=== PATIENT | male | born 1960 | race Caucasian/White ===

== ENCOUNTER 2020-02-18 17:00 | Emergency (ER) | payer MEDICAID ==
[~2020-02-18] VITALS: Ht 162.6 cm; Wt 72.7 kg
--- NOTE | 2020-02-18 17:27 | PHYS DOC ---
Past Medical History Past Medical History: No Pertinent History (SUJEY MERCADO MD) Past Surgical History: No Surgical History (SUJEY MERCADO MD) Smoking Status: Current Every Day Smoker Alcohol Use: Occasionally (SUJEY MERCADO MD) General Adult EDM: Chief Complaint: ALTERED MENTAL STATUS HPI: HPI: Patient is a 59 year old male who arrives via EMS after being found outside his home unresponsive by . Patient confused upon arrival of EMS. Patient found to have urinary incontinence. Patient denies any medical problems and says he drinks up to a sixpack of beer a day. Patient's history physical and review of systems is limited by altered mental status. Patient states he did have a couple beers today but does not know the exact month and year. (SUJEY MERCADO MD) Review of Systems: Review of Systems: Constitutional: Denies fever or chills. [] Eyes: Denies change in visual acuity. [] HENT: Denies nasal congestion or sore throat. [] Respiratory: Denies cough or shortness of breath. [] Cardiovascular: Denies chest pain or edema. [] GI: Denies abdominal pain, nausea, vomiting, bloody stools or diarrhea. [] : Denies dysuria. [] Musculoskeletal: Denies back pain or joint pain. [] Integument: Denies rash. [] Neurologic: Denies headache, focal weakness or sensory changes. [] Endocrine: Denies polyuria or polydipsia. [] Lymphatic: Denies swollen glands. [] Psychiatric: Denies depression or anxiety. [] Patient denies the whole review of systems but it is limited due to his altered mental status (SUJEY MERCADO MD) Heart Score: Risk Factors: Risk Factors: DM, Current or recent (<one month) smoker, HTN, HLP, family history of CAD, obesity. Risk Scores: Score 0 - 3: 2.5% MACE over next 6 weeks - Discharge Home Score 4 - 6: 20.3% MACE over next 6 weeks - Admit for Clinical Observation Score 7 - 10: 72.7% MACE over next 6 weeks - Early Invasive Strategies (SUJEY MERCADO MD) Allergies: Allergies: Allergies Coded Allergies Type Severity Reaction Last Updated Verified No Known Drug Allergies 02/18/20 No (SUJEY MERCADO MD) Physical Exam: PE: Constitutional: Well developed, well nourished, no acute distress, non-toxic appearance. [] Incontinent to urine HENT: Normocephalic, atraumatic, bilateral external ears normal, oropharynx moist, no oral exudates, no tongue lesions nose normal. [] Eyes: PERRLA, EOMI, conjunctiva normal, no discharge. [] Neck: Normal range of motion, no tenderness, supple, no stridor. [] Cardiovascular:Heart rate regular rhythm, peripheral pulses intact, cap refill brisk Lungs & Thorax: Bilateral breath sounds clear no respiratory distress Abdomen: soft, no tenderness, no masses, no pulsatile masses. [] Skin: Warm, dry, no erythema, no rash. [] Back: No tenderness, no CVA tenderness. [] Extremities: No tenderness, no cyanosis, no clubbing, ROM intact, no edema. [] Neurologic: Alert and oriented X 1 normal motor function, normal sensory function, no focal deficits noted. [] Psychologic: Affect normal, judgement normal, mood normal. [] (SUJEY MERCADO MD) Current Patient Data: Vital Signs: Vital Signs Date Time Temp Pulse Resp B/P (MAP) Pulse Ox O2 Delivery O2 Flow Rate FiO2 02/18/20 17:08 98.1 111 16 119/74 (89) 94 Room Air 98.1 (SUJEY MERCADO MD) EKG: EKG: [] (SUJEY MERCADO MD) Radiology/Procedures: Radiology/Procedures: [] (SUJEY MERCADO MD) Course & Med Decision Making: Course & Med Decision Making Pertinent Labs and Imaging studies reviewed. (See chart for details) [] 59-year-old male presents with a possible seizure and confusion. Patient has a large work-up that has been ordered by [facility] results are pending and care will be signed over to Dr. Guevara with follow-up on labs and imaging and EKG and disposition all pending. (SUJEY MERCADO MD) Course & Med Decision Making Assumed care at checkout. At checkout work-up was pending. Work-up is normal at this time. I have talked with the patient and he is back to his baseline. He states that he does typically drink every day but did not drink today. Is likely this was an alcohol withdrawal seizure. Patient does not want to quit drinking and would like to go home. He was offered admission but declined. Patient's test results and vitals while in the ED were fully reviewed and discussed with the patient. Patient is stable and at this time does not need admission to the hospital. We have discussed strict return precautions and the importance of following up with their Primary Care Physician. Patient stated understanding and was given an opportunity to ask any questions. Patient is in agreement with plan. (ESTEFANI GUEVARA MD) Dragon Disclaimer: Dragon Disclaimer: This electronic medical record was generated, in whole or in part, using a voice recognition dictation system. (SUJEY MERCADO MD) Departure Departure Impression: Primary Impression: Altered mental status Additional Impressions: Seizure Alcohol abuse Disposition: 01 HOME, SELF-CARE Condition: IMPROVED Patient Instructions: Alcohol Withdrawal, Oocc-ab-Nnxs, Seizure, Adult Justicifation of Admission Dx: Justifications for Admission: Justification of Admission Dx: N/A (SUJEY MERCADO MD) Justification of Admission Dx: N/A (ESTEFANI GUEVARA MD) SUJEY MERCADO MD Feb 18, 2020 17:27 ESTEFANI GUEVARA MD Feb 18, 2020 20:36
--- NOTE | 2020-02-18 17:52 | RAD ---
EXAM: Chest, single view. HISTORY: Seizure. COMPARISON: None. FINDINGS: A frontal view of the chest is obtained. There is no infiltrate, pleural effusion or pneumothorax. The heart is normal in size. There are healed rib fractures. There is a healed right clavicle fracture. IMPRESSION: No acute pulmonary finding. Electronically signed by: Ciarra Marie MD (02/18/2020 5:49 PM) [facility]
--- NOTE | 2020-02-18 18:19 | RAD ---
CT HEAD INDICATION: Seizure COMPARISON: None Available. Exposure: One or more of the following individualized dose reduction techniques were utilized for this examination: 1. Automated exposure control 2. Adjustment of the mA and/or kV according to patient size 3. Use of iterative reconstruction technique TECHNIQUE: 5 mm contiguous axial images were obtained from the skull base to the vertex in both bone and soft tissue algorithm. FINDINGS: No abnormal attenuation within the brain parenchyma. No evidence of acute intracranial hemorrhage. No extra-axial fluid collections. No mass effect or midline shift. Ventricular size is appropriate. Basal cisterns are patent. No fractures identified.Mahmood-white differentiation is preserved.Globes and orbits are within normal limits. Paranasal sinuses and mastoid air cells are clear. IMPRESSION: No acute intracranial findings. Electronically signed by: Ben Johnson MD (02/18/2020 6:16 PM) [id number]
[2020-02-18 18:44] LABS: BASO % 0 % (0-3); EOS % 0 % (0-3); HEMATOCRIT 43.7 % (39.0-53.0); HEMOGLOBIN 14.6 g/dL (13.0-17.5); LYMPH # 0.7 x10^3/uL (1.0-4.8); LYMPH % 8 % (24-48); MEAN CORPUSCULAR HEMOGLOBIN 29 pg (25-35); MEAN CORPUSCULAR HGB CONC 33 g/dL (31-37); MEAN CORPUSCULAR VOLUME 86 fL (79-100); MONO # 0.8 x10^3/uL (0.0-1.1); MONO % 8 % (0-9); NEUT # 8.1 x10^3/uL (1.8-7.7); NEUT % 84 % (31-73); PLATELET COUNT 136 x10^3/uL (140-400); RED BLOOD COUNT 5.09 x10^6/uL (4.30-5.70); RED CELL DISTRIBUTION WIDTH 15.2 % (11.5-14.5); WHITE BLOOD COUNT 9.7 x10^3/uL (4.0-11.0)
[2020-02-18 19:13] LABS: PROTHROMBIN TIME PATIENT 13.9 SEC (11.7-14.0)
[2020-02-18 19:24] LABS: CREATININE 0.9 mg/dL (0.7-1.3); GFR 86.1; POTASSIUM 3.8 mmol/L (3.5-5.1)
[2020-02-18 19:29] LABS: ALBUMIN 3.8 g/dL (3.4-5.0); ALBUMIN/GLOBULIN RATIO 0.9 (1.0-1.7); MAGNESIUM 2.2 mg/dL (1.8-2.4); TOTAL BILIRUBIN 0.5 mg/dL (0.2-1.0); TOTAL PROTEIN 8.1 g/dL (6.4-8.2)
[2020-02-18] MEDS ORDERED: IV NORMAL SALINE 1000ML BAG 1,000 ML IV ONE (20:15)
[2020-02-18 20:31] LABS: BARBITURATES NEG (NEG); BENZODIAZEPINES NEG (NEG); CANNABINOIDS NEG (NEG); COCAINE NEG (NEG); METHADONE NEG (NEG); OPIATES NEG (NEG); PHENCYCLIDINE NEG (NEG)
[2020-02-18 20:32] LABS: AMPHETAMINE/METHAMPHETAMINE NEG (NEG)
[2020-02-18 21:00] VITALS: BP 149/78
--- NOTE | 2020-02-19 08:02 | EKG ---
[facility] [address] [place] [id number] Test Date: 2020-02-18 Test Time: 19:10:54 Pat Name: ROLAND AGUILAR Department: Room: Gender: M Energy Specialist: : 1960 Requested By: SUJEY MERCADO Order Number: [id number] Reading MD: Measurements Intervals [place] Rate: 82 P: 51 MO: 164 QRS: -39 QRSD: 96 T: 44 QT: 384 QTc: 452 Interpretive Statements SINUS RHYTHM LEFT ATRIAL ABNORMALITY ABNORMAL LEFT AXIS DEVIATION LEFT ANTERIOR FASCICULAR BLOCK ABNORMAL ECG RI6.02 No previous ECG available for comparison
== END 2020-02-18 21:30 | disposition home or self-care (01) ==
LOC: ER 17:00
DX: R41.82 Altered mental status, unspecified (principal); R56.9 Unspecified convulsions; F10.10 Alcohol abuse, uncomplicated; Y90.0 Blood alcohol level of less than 20 mg/100 ml; R32 Unspecified urinary incontinence; F17.200 Nicotine dependence, unspecified, uncomplicated
CPT/HCPCS: 36415; 70450; 71045; 80053; 80307; 82550; 83690; 83735; 84484; 85025; 85610; 85730; 93005; 96360; 99285; G0480; J7030